=== PATIENT | female | born 1995 | race Caucasian/White ===

== ENCOUNTER 2017-11-27 11:56 | Emergency (ER) | payer BC ==
[2017-11-27 12:47] VITALS: BP 110/72
--- NOTE | 2017-11-27 13:15 | UC ---
Complaint Female HPI - HPI Summary HPI Summary: Pt c/o sudden onset of urinary urgency, frequency and dysuria X 2 days. - History Of Current Complaint Chief Complaint: UCGU Stated Complaint: URINARY Time Seen by Provider: 11/27/17 12:47 Hx Obtained From: Patient Hx Last Menstrual Period: one month ?: No Onset/Duration: Sudden Onset, Lasting Days, Still Present Timing: Constant Severity Initially: Mild Severity Currently: Mild Pain Intensity: 2 Character: Burning Aggravating Factor(s): Urination Associated Signs And Symptoms: Positive: Negative - Risk Factors Ectopic Risk Factor: Negative - Allergies/Home Medications Allergies/Adverse Reactions: Allergies Allergy/AdvReac Type Severity Reaction Status Date / Time No Known Allergies Allergy Verified 11/27/17 12:47 Home Medications: Home Medications Iud 1 unit IU DAILY 11/27/17 [History Confirmed 11/27/17] PMH/Surg Hx/FS Hx/Imm Hx Previously Healthy: Yes - Surgical History Surgical History: Yes Surgery Procedure, Year, and Place: iud 10/2017 - Family History Known Family History: Positive: Cardiac Disease - Social History 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) Alcohol Use: Occasionally Substance Use Type: None Smoking Status (MU): Never Smoked Tobacco Have You Smoked in the Last Year: No Review of Systems Constitutional: Negative Skin: Negative Eyes: Negative ENT: Negative Respiratory: Negative Cardiovascular: Negative Gastrointestinal: Negative Genitourinary: Dysuria, Frequency, Urgency Motor: Negative Neurovascular: Negative Musculoskeletal: Negative Neurological: Negative Psychological: Negative Is Patient Immunocompromised?: No All Other Systems Reviewed And Are Negative: Yes Physical Exam Triage Information Reviewed: Yes Appearance: Well-Appearing Vital Signs: Initial Vital Signs Temp 98.6 F 11/27/17 12:39 Pulse 80 11/27/17 12:39 Resp 20 11/27/17 12:39 BP 110/72 11/27/17 12:39 Pulse Ox 100 11/27/17 12:39 Vital Signs Reviewed: Yes ENT Exam: Normal Dental Exam: Normal Neck exam: Normal Respiratory: Positive: No respiratory distress Abdominal Exam: Normal Abdomen Description: Positive: Nontender Musculoskeletal Exam: Normal Neurological Exam: Normal Psychological Exam: Normal Skin Exam: Normal Complaint Female Dx - Differential Dx/Diagnosis Differential Diagnosis/HQI/PQRI: Urinary Tract Infection Provider Diagnoses: UTI Discharge - Sign-Out/Discharge Documenting (check all that apply): Patient Departure All imaging exams completed and their final reports reviewed: No Studies - Discharge Plan Condition: Stable Disposition: HOME Prescriptions: Cephalexin CAP* [Keflex 500 CAP*] 500 mg PO Q8H #21 cap Patient Education Materials: Urinary Tract Infection in Women (ED) Referrals: Kourtney Linda [Primary Care Provider] - If Needed - Billing Disposition and Condition Condition: STABLE Disposition: Home
== END 2017-11-27 13:34 | disposition home or self-care (01) ==
LOC: UCCORT 11:56
DX: N39.0 Urinary tract infection, site not specified (principal); A49.8 Other bacterial infections of unspecified site
CPT/HCPCS: 81003; 87077; 87086; 87186; 99202; G0463